=== PATIENT | male | born 1940 | race Caucasian/White ===

== ENCOUNTER 2018-06-07 13:35 | Inpatient (IN) ==
[2018-06-07] MEDS ORDERED: [UNRECOGNIZED DRUG - OTHER] TP PRN (17:15)
[2018-06-07] MEDS ORDERED: EARACHE DROPS OT PRN (17:15)
[2018-06-07] MEDS ORDERED: Nitroglycerin 0.4 MG TAB.SUBL SL PRN (17:15)
[2018-06-07] MEDS ORDERED: Mag Hydrox/Al Hydrox/Simeth 30 ML UDC PO PRN (17:22)
--- NOTE | 2018-06-07 17:22 | Internal Med History&Physical ---
Date of Encounter: 06/07/18 Time of Encounter: 17:19 Assessment and Plan (1) CAD (coronary artery disease) Current visit: No Status: Acute This is clinically stable. We will continue metoprolol prophylactically and watch his vital signs. When necessary nitroglycerin. Qualifiers: Coronary Disease-Associated Artery/Lesion type: [place] artery [place] vs. transplanted heart: [place] heart Associated angina: without angina Qualified Code(s): I25.10 - Atherosclerotic heart disease of [place] coronary artery without angina pectoris (2) Status post coronary artery bypass graft Current visit: Yes Status: Acute The patient is doing well, clinically. He has been instructed in use of incentive spirometer. He will be watched for fever, etc. (3) Weakness Current visit: Yes Status: Acute He has been debilitated after surgery and needs both physical therapy and occupational therapy to resume his usual activities. We will consult social service and recreational therapy for assessment, as well. (4) Benign prostatic hyperplasia Current visit: Yes Status: Acute This is apparently stable and patient has been urinating well, per history. We will continue him on his medications from home. Qualifiers: Lower urinary tract symptom presence: symptoms absent Qualified Code(s): N40.0 - Benign prostatic hyperplasia without lower urinary tract symptoms (5) Gastroesophageal reflux disease Current visit: Yes Status: Acute This is clinically stable and will continue acid suppression. Qualifiers: Esophagitis presence: without esophagitis Qualified Code(s): K21.9 - Gastro-esophageal reflux disease without esophagitis (6) Constipation by delayed colonic transit Current visit: Yes Status: Acute This is apparently related to inactivity and narcotics. He required an enema earlier today. I advised that he have a bowel movement at least every other day. If not, he should use MiraLAX. (7) Arrhythmia Current visit: Yes Status: Acute The etiology of this is not certain but he is on amiodarone. This will be co ntinued until cardiology instructs us, otherwise. Qualifiers: Arrhythmia type: unspecified cardiac arrhythmia Qualified Code(s): I49.9 - Cardiac arrhythmia, unspecified (8) Sinus symptom Current visit: Yes Status: Acute This is apparently chronic allergies and the patient takes fluticasone for same. Internal Medicine - H&P: HPI Chief complaint: Weakness Admitted From: Hospital to Hospital Transfer Plans for Post Hospital Care: Home History of present illness: Mr. Patterson is a 77 year old male status post CABG 5 on 05/31/[address] Ahuja. He is doing relatively well except for constipation, after surgery. He denies anginal type chest pain since the bypass and has been feeling generally well. He is careful to hold his bare while coughing. We discussed the incentive spirometer and he will use it more. Past medical history is significant for hyperlipidemia, coronary disease as noted with prior LA 3 and stent placement, remotely, allergies with chronic sinusitis, prostatism, GERD, and no diabetes or high blood pressure, etc. He is allergic to ciprofloxacin which causes hives and hydrocodone which causes an unknown reaction. Past surgical history is reviewed and includes cataracts, knee surgery, his CABG as expected. 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 He notes that Imdur gave him a headache and is pleased that he does not need that, postoperatively. Past Med Surg Social Fam HX - Past Medical History Medical history: coronary artery disease, GERD, hyperlipidemia, myocardial infarction, other Additional medical history: EXTERNAL DYSPNEA, [place] 2000, blood thinners, Psychiatric history: no psych history - Past Surgical History Surgical History: angioplasty/stent, appendectomy, cataract, herniorrhaphy, orthopedic, other, other Additional surgical history: egd,colonoscopy, RIGHT ANKLE FRACTURE, CATARACTS BILAT,SEPTOPLASTY AND SINUS SURGERY - Social History Smoking Status: Never smoker Smokeless Tobacco Status: No Alcohol use: rarely, occasionally Drug use: none - Family History Mother Living Status: Hx Family Cardiac Disorders: Yes Internal Medicine - H&P: Meds Atorvastatin [Lipitor] 40 mg PO QPM 06/05/15 [History] Cyanocobalamin (Vitamin B-12) [Vitamin B-12] 500 mcg SL QPM 06/05/15 [History] Folic Acid 0.4 mg PO QAM 06/05/15 [History] Pantoprazole Sodium [Protonix] 40 mg PO QAM 06/05/15 [History] Aspirin [Ecotrin] 325 mg PO 1200 05/28/18 [History] Cholecalciferol (Vitamin D3) [Vitamin D3] 1,000 unit PO QAM 05/28/18 [History] Doxazosin [Cardura] 2 mg PO HS 05/28/18 [History] Finasteride [Proscar] 5 mg PO DAILY 05/28/18 [History] Metoprolol Succinate [Toprol Xl] 25 mg PO HS 05/28/18 [History] Nitroglycerin [Nitrostat] 0.4 mg SL DAILY PRN 05/28/18 [History] raNITIdine HCl [Ranitidine HCl] 150 mg PO HS 05/28/18 [History] Azelaic Acid [Finacea] 1 appl TP BID 05/31/18 [History] Chlorhexidine Gluconate [Betasept] 1 appl TP DAILY PRN 05/31/18 [History] Ipratropium [place] 1 - 2 spr NS TID 05/31/18 [History] Selenium Sulfide [Tersi Foam] 1 appl TP BID 05/31/18 [History] Vitamin E 400 unit PO 1200 06/01/18 [History] Amiodarone [Cordarone] 200 mg PO DAILY 30 Days #30 tablet 06/07/18 [Rx] OxyCODONE/APAP 5/325 [Percocet 5/325 MG] 1 each PO Q4HR PRN 7 Days #20 tablet 06/07/18 [Rx] Patient Taking Own Medication 3 each OT TID PRN each 06/07/18 [Rx] Allergy/AdvReac Type Severity Reaction Status Date / Time ciprofloxacin AdvReac Hives Verified 05/31/18 12:39 hydrocodone AdvReac Itching Verified 05/31/18 07:37 All Systems PM: A 10-system review of systems was performed and is negative for pertinent findings except as documented above in the HPI. Review of systems: Patient has no complaint of chest discomfort, dyspnea, orthopnea, breathing problems, palpitations, nausea or vomiting, constipation or diarrhea, other tre nges in bowel habits, heartburn, difficulty with urination, kidney problems or kidney stones, fevers chills or sweats, rash or itching, seizures, headache or lightheadedness, heat or cold intolerance, blood problems or anemia, or other new complaints, except as mentioned above. Review of systems is otherwise negative. - Constitutional Vitals: Temp Pulse Resp BP Pulse Ox 98.4 F 82 16 129/81 96 06/07/18 16:23 06/07/18 16:23 06/07/18 16:23 06/07/18 16:23 06/07/18 16:23 Exam: Examination: (Except as mentioned above): General: In no apparent distress, alert and oriented 3. Head: Atraumatic and normocephalic. Eyes: Extraocular muscles are intact, pupils equal round and reactive to light and accommodation. Sclerae anicteric. Ears: External ears are normal to inspection and hearing is grossly normal. Nose: Patent without lesion noted. Mouth: No intraoral lesions seen. Dentition is unremarkable. Neck: Supple with trachea midline. There is no thyromegaly or adenopathy and carotids are 2+ without bruit heard. Respiratory: No use of accessory muscles. Lungs are clear throughout. Normal airflow. Cardiovascular: Regular rate and rhythm without murmur appreciated. Abdomen: Bowel sounds are normal. No hepatosplenomegaly masses or tenderness. Obese and therefore difficult to palpate deeply. Extremities: No cyanosis clubbing or edema. Neurological: A and O 3. Cranial nerves II through XII are intact. No focal deficits and no abnormal movements or postures. Skin: Warm and non-diaphoretic with no lesions noted. At his central line site he has a dressing as well as dressings where his low surgical drains, and at the lower aspect of his chest where. He has sternotomy scar looks well approximated and healing nicely. Breasts, pelvic and rectal: Not examined.
[2018-06-07] MEDS: Cyanocobalamin (B-12) 1,000 MCG TABLET PO SCH (18:44)
[2018-06-07] MEDS: (Ipratropium Bromide [Ipratropium Bromide] 1 SPR) NS SCH (20:33)
[2018-06-07] MEDS: AZELAIC ACID TP SCH (20:33)
[2018-06-07] MEDS: SELENIUM SULFIDE APPL TP SCH (20:33)
[2018-06-07] MEDS: Metoprolol XL (24 HR) Succ 25 MG TAB.ER.24H PO SCH (20:39)
[2018-06-07] MEDS: Famotidine 20 MG TABLET PO SCH (20:39)
[2018-06-07] MEDS: *HR* OxyCODONE/APAP 5/325 TABLET PO PRN (20:39)
[2018-06-08] MEDS: *HR* OxyCODONE/APAP 5/325 TABLET PO PRN ×3 (06:34→17:07)
[2018-06-08] MEDS: *HR* Enoxaparin 40 MG/0.4 ML SYRINGE SQ SCH (06:34)
[2018-06-08 07:13] LABS: Basophils % 0.3 %; Eosinophils # 0.5 K/mcL (0.0-0.6); Hematocrit 30.6 % (37.5-50.1); Hemoglobin 9.9 g/dL (12.9-16.9); Immature Granulocytes % 1.1 % (0-4); Lymphocytes # 0.8 K/mcL (0.6-4.6); Lymphocytes % 8.2 %; Mean Corpuscular HGB Conc 32.4 g/dL (31.6-35.5); Mean Corpuscular Volume 95.9 fL (83.0-100.0); Mean Platelet Volume 10.3 fL (9.4-12.4); Monocytes # 0.9 K/mcL (0.0-1.3); Monocytes % 9.1 %; Neutrophils # 7.2 K/mcL (1.6-8.9); Platelet Count 201 K/mcL (140-400); Red Blood Count 3.19 M/mcL (4.19-5.50); Red Cell Distribution Width 13.7 % (11.5-14.5); Segmented Neutrophils % 76.3 %
[2018-06-08 07:28] LABS: Alanine Aminotransferase 117 Units/L (7-52); Albumin 3.3 g/dL (3.5-5.7); Albumin/Globulin Ratio 1.6 (1.1-2.2); Alkaline Phosphatase 113 Units/L (34-104); Aspartate Amino Transferase 43 Units/L (13-39); BUN/Creatinine Ratio 16 (6-26); Bilirubin,Total 0.7 mg/dL (0.3-1.0); Blood Urea Nitrogen 16 mg/dL (8-23); Calcium 8.6 mg/dL (8.6-10.3); Carbon Dioxide 27 mEq/L (23-29); Chloride 105 mEq/L (98-107); Globulin 2.1 g/dL (2.4-3.5); Glucose 103 mg/dL (70-105); Magnesium 2.1 mg/dL (1.6-2.6); Osmolality,Calculated 287 (280-300); Potassium 4.4 mEq/L (3.5-5.1); Sodium 138 mEq/L (136-145); Total Protein 5.4 g/dL (6.4-8.9); eGFR For Non-African Americans > 60 (> 60)
[2018-06-08] MEDS: (Ipratropium Bromide [Ipratropium Bromide] 1 SPR) NS SCH ×3 (09:19→21:09)
[2018-06-08] MEDS: AZELAIC ACID TP SCH ×2 (09:19→21:09)
[2018-06-08] MEDS: SELENIUM SULFIDE APPL TP SCH ×2 (09:19→21:09)
[2018-06-08] MEDS: Finasteride 5 MG TABLET PO SCH (09:23)
[2018-06-08] MEDS: Folic Acid 1 MG TABLET PO SCH (09:24)
[2018-06-08] MEDS: *HR* Amiodarone 200 MG TABLET PO SCH (09:24)
[2018-06-08] MEDS: Cholecalciferol (D-3) 1,000 UNIT TABLET PO SCH (09:24)
--- NOTE | 2018-06-08 10:22 | Internal Med Progress Note ---
Date of Encounter: 06/08/18 Time of Encounter: 07:20 - Assessment and plan (1) CAD (coronary artery disease) Current Visit: No Status: Acute Assessment and plan: This is clinically stable without symptoms or signs. Qualifiers: Coronary Disease-Associated Artery/Lesion type: [place] artery [place] vs. transplanted heart: [place] heart Associated angina: without angina Qualified Code(s): I25.10 - Atherosclerotic heart disease of [place] coronary artery without angina pectoris (2) Status post coronary artery bypass graft Current Visit: Yes Status: Acute Assessment and plan: The patient is stable and returning to normal. We will continue to wean his oxygen. This will be followed. (3) Weakness Current Visit: Yes Status: Acute Assessment and plan: It seems like he should do well with therapy and this is to be assessed by therapists, today. (4) Benign prostatic hyperplasia Current Visit: Yes Status: Acute Assessment and plan: He is without current symptoms. Qualifiers: Lower urinary tract symptom presence: symptoms absent Qualified Code(s): N40.0 - Benign prostatic hyperplasia without lower urinary tract symptoms (5) Gastroesophageal reflux disease Current Visit: Yes Status: Acute Assessment and plan: No recent problems. Qualifiers: Esophagitis presence: without esophagitis Qualified Code(s): K21.9 - Gastro -esophageal reflux disease without esophagitis (6) Constipation by delayed colonic transit Current Visit: Yes Status: Acute Assessment and plan: As above, he has been instructed to use MiraLAX today. (7) Arrhythmia Current Visit: Yes Status: Acute Assessment and plan: Currently stable to exam and symptoms. Qualifiers: Arrhythmia type: unspecified cardiac arrhythmia Qualified Code(s): I49.9 - Cardiac arrhythmia, unspecified (8) Sinus symptom Current Visit: Yes Status: Acute Assessment and plan: This is stable. - Subjective Interval history: Patient is feeling generally well. He has no problems acutely. He still has some chest pain when he coughs. He is using his eva bear for this. He shows me his "black" area on his heel. This is actually ecchymotic and very mild, consistent with dependent blood collection. It is not fluctuant in the discoloration is about 2.5 cm in diameter at the posterior medial heel. He has still not moved his bowels and we talked about the use of a laxative. Patient has no complaint of chest discomfort, dyspnea, orthopnea, palpitations, nausea or vomiting, constipation or diarrhea, other changes in bowel habits, difficulty with urination, rash or itching, or other new complaints, except as mentioned above. Review of systems is otherwise negative. I discussed management of her care with nursing staff. - Constitutional Vitals: Temp Pulse Resp BP Pulse Ox 97.6 F 73 14 107/68 92 06/08/18 07:13 06/08/18 07:13 06/08/18 07:13 06/08/18 07:13 06/08/18 07:13 Exam: Examination: (Except as mentioned above): General: In no apparent distress. Alert and oriented 3. Nondiaphoretic. Head: Atraumatic and normocephalic. Respiratory: No use of accessory muscles. Lungs are clear throughout. Normal airflow. Cardiovascular: Regular rate and rhythm without murmur appreciated. Abdomen: Bowel sounds are normal. No hepatosplenomegaly mass or tenderness appreciated. Obese and therefore difficult to palpate deeply. Extremities: No cyanosis clubbing or edema. See comments in history of present illness regarding ecchymotic area on right heel. Skin: Warm and non-diaphoretic with no new lesions noted. Internal Medicine: Result - Labs CBC & Chem 7: 06/08/18 07:05 06/08/18 07:05 Labs: Short CBC 06/08/18 Range/Units 07:05 WBC 9.4 (4.3-11.1) K/mcL Hgb 9.9 L (12.9-16.9) g/dL Hct 30.6 L (37.5-50.1) % Plt Count 201 (140-400) K/mcL Neutrophils # 7.2 (1.6-8.9) K/mcL BMP 06/08/18 07:05 Sodium 138 Potassium 4.4 Chloride 105 Carbon Dioxide 27 BUN 16 Creatinine 1.01 Glucose 103 Calcium 8.6 Liver Function 06/08/18 Range/Units 07:05 Total Bilirubin 0.7 (0.3-1.0) mg/dL AST 43 H (13-39) Units/L ALT 117 H (7-52) Units/L Alkaline Phosphatase 113 H (34-104) Units/L Albumin 3.3 L (3.5-5.7) g/dL Consult Discharge Plan - Plan Referrals: Adair Ahuja MD [Primary Care Provider] -
[2018-06-08] MEDS: Aspirin Enteric Coated 325 MG Tablet PO SCH (13:27)
[2018-06-08] MEDS: Cyanocobalamin (B-12) 1,000 MCG TABLET PO SCH (17:07)
[2018-06-08] MEDS: Famotidine 20 MG TABLET PO SCH (21:08)
[2018-06-08] MEDS: Metoprolol XL (24 HR) Succ 25 MG TAB.ER.24H PO SCH (21:09)
[2018-06-09] MEDS: *HR* Enoxaparin 40 MG/0.4 ML SYRINGE SQ SCH (06:19)
[2018-06-09] MEDS: *HR* Amiodarone 200 MG TABLET PO SCH (09:26)
[2018-06-09] MEDS: *HR* OxyCODONE/APAP 5/325 TABLET PO PRN ×2 (09:27→20:14)
[2018-06-09] MEDS: Folic Acid 1 MG TABLET PO SCH (09:27)
[2018-06-09] MEDS: Cholecalciferol (D-3) 1,000 UNIT TABLET PO SCH (09:27)
[2018-06-09] MEDS: Finasteride 5 MG TABLET PO SCH (09:27)
[2018-06-09] MEDS: AZELAIC ACID TP SCH ×2 (09:28→20:11)
[2018-06-09] MEDS: SELENIUM SULFIDE APPL TP SCH ×2 (09:28→20:12)
[2018-06-09] MEDS: (Ipratropium Bromide [Ipratropium Bromide] 1 SPR) NS SCH ×3 (09:28→20:13)
[2018-06-09] MEDS: Aspirin Enteric Coated 325 MG Tablet PO SCH (12:15)
--- NOTE | 2018-06-09 14:28 | Internal Med Progress Note ---
Addendum entered and electronically signed by Yulisa Hernandez 06/10/18 14:48: I have personally performed a face to face evaluation on this patient. I have reviewed and agree with the care plan. Original Note: Date of Encounter: 06/09/18 Time of Encounter: 14:26 - Assessment and plan (1) Status post coronary artery bypass graft Current Visit: Yes Status: Acute Assessment and plan: Continue PT and OT for weakness. Will follow progress. Continue precautions. Follow up with cardiology as scheduled. Starting to wean off oxygen. Maintaining O2 sats with exertion on room air at 93%. (2) CAD (coronary artery disease) Current Visit: Yes Status: Acute Assessment and plan: Denies chest pain. Stable. Continue current medication. Qualifiers: Coronary Disease-Associated Artery/Lesion type: [place] artery [place] vs. tr ansplanted heart: [place] heart Associated angina: without angina Qualified Code(s): I25.10 - Atherosclerotic heart disease of [place] coronary artery without angina pectoris - Subjective Interval history: Patient is participating well with therapy. Ambulating with therapy hundred feet with contact guard assist. Denies chest pain, fever, chills, nausea vomiting or diarrhea. States bowels move this morning. Maintaining appetite and hydration. at bedside during exam. - Constitutional Vitals: Temp Pulse Resp BP Pulse Ox 98.2 F 99 18 112/69 91 06/09/18 07:21 06/09/18 07:21 06/09/18 07:21 06/09/18 07:21 06/09/18 07:21 General appearance: Present: cooperative, A&O X 3, pleasant, no acute distress, answers questions appropriately - Head Head exam: Present: atraumatic, normocephalic - Eye Eye exam: Present: PERRL, conjuntiva pink, sclera anicteric Pupils: Present: PERRL - Neck Neck exam general surgery: Present: supple, trachea midline. Absent: lymphadenopathy - Respiratory Respiratory exam: Present: CTAB. Absent: accessory muscle use, rales, rhonchi, wheezes - Cardiovascular Cardiovascular exam: Present: RRR, +S1, +S2. Absent: diastolic murmur, gallop, rubs, systolic murmur - GI/Abdominal GI/Abdominal exam: Present: normal bowel sounds, soft, no peritoneal signs. Absent: distended, tenderness - Extremities Exam Extremities exam: Present: warm, radial pulses palpable and symmetrical. Absent: calf tenderness, cyanotic, pedal edema Additional comments: Miguel hose on bilateral lower extremities. Right ankle slightly swollen. - [place] Comments: Sternal incision dry and intact. No drainage. - Neurological Exam Neurological exam: Present: CN II-XII intact, oriented X3, no focal deficits. Absent: pronater drift, facial droop, speech deficit - Skin Skin exam: Present: dry, intact Internal Medicine: Result - Labs CBC & Chem 7: 06/08/18 07:05 06/08/18 07:05 Consult Discharge Plan - Plan Referrals: Adair Ahuja MD [Primary Care Provider] -
[2018-06-09] MEDS: Cyanocobalamin (B-12) 1,000 MCG TABLET PO SCH (17:22)
[2018-06-09] MEDS: Famotidine 20 MG TABLET PO SCH (20:13)
[2018-06-09] MEDS: Metoprolol XL (24 HR) Succ 25 MG TAB.ER.24H PO SCH (20:13)
[2018-06-10] MEDS: *HR* OxyCODONE/APAP 5/325 TABLET PO PRN ×3 (05:08→19:55)
[2018-06-10] MEDS: *HR* Enoxaparin 40 MG/0.4 ML SYRINGE SQ SCH (05:08)
[2018-06-10] MEDS: Folic Acid 1 MG TABLET PO SCH (07:56)
[2018-06-10] MEDS: Finasteride 5 MG TABLET PO SCH (07:56)
[2018-06-10] MEDS: Cholecalciferol (D-3) 1,000 UNIT TABLET PO SCH (07:57)
[2018-06-10] MEDS: *HR* Amiodarone 200 MG TABLET PO SCH (07:57)
[2018-06-10] MEDS: (Ipratropium Bromide [Ipratropium Bromide] 1 SPR) NS SCH ×3 (07:58→19:51)
[2018-06-10] MEDS: AZELAIC ACID TP SCH ×2 (07:58→19:51)
[2018-06-10] MEDS: SELENIUM SULFIDE APPL TP SCH ×2 (07:58→19:51)
[2018-06-10] MEDS: Acetaminophen 325 MG TABLET PO PRN (08:20)
[2018-06-10] MEDS: Aspirin Enteric Coated 325 MG Tablet PO SCH (11:33)
--- NOTE | 2018-06-10 11:57 | Internal Med Progress Note ---
Addendum entered and electronically signed by Yulisa Hernandez 06/10/18 14:48: I have personally performed a face to face evaluation on this patient. I have reviewed and agree with the care plan. His mood is good. Original Note: Date of Encounter: 06/10/18 Time of Encounter: 11:55 - Assessment and plan (1) Status post coronary artery bypass graft Current Visit: Yes Status: Acute Assessment and plan: No acute issues. Progressing well with PT/OT. Surgical incision appears healthy. Afebrile. Continue on current plan of care. (2) Benign prostatic hyperplasia Current Visit: Yes Status: Acute Assessment and plan: No acute issues. Voiding well. Continue on current meds. Qualifiers: Lower urinary tract symptom presence: symptoms absent Qualified Code(s): N40.0 - Benign prostatic hyperplasia without lower urinary tract symptoms (3) Gastroesophageal reflux disease Current Visit: Yes Status: Acute Assessment and plan: No reported refux. Continue on current meds. Qualifiers: Esophagitis presence: without esophagitis Qualified Code(s): K21.9 - Gastro-esophageal reflux disease without esophagitis - Time Spent With Patient less than 15 minutes - Subjective Interval history: Patient appears relaxed and currently denies any dyspnea or discomforts. Stats that his pain has been well controlled. States that his therapy has been going well. - Constitutional Vitals: Temp Pulse Resp BP Pulse Ox 97.6 F 74 20 106/62 93 06/10/18 07:23 06/10/18 07:23 06/10/18 07:23 06/10/18 07:23 06/10/18 08:01 General appearance: Present: cooperative, A&O X 3, pleasant, no acute distress, answers questions appropriately - Head Head exam: Present: atraumatic, normocephalic - Eye Eye exam: Present: PERRL, conjuntiva pink, sclera anicteric Pupils: Present: PERRL - Neck Neck exam general surgery: Present: supple, trachea midline. Absent: lymphadenopathy - Respiratory Respiratory exam: Present: CTAB. Absent: accessory muscle use, rales, rhonchi, wheezes - Cardiovascular Cardiovascular exam: Present: RRR, +S1, +S2. Absent: diastolic murmur, gallop, rubs, systolic murmur - GI/Abdominal GI/Abdominal exam: Present: normal bowel sounds, soft, no peritoneal signs. Absent: distended, tenderness - Extremities Exam Extremities exam: Present: warm, radial pulses palpable and symmetrical. Absent: calf tenderness, cyanotic, pedal edema - Neurological Exam Neurological exam: Present: CN II-XII intact, oriented X3, no focal deficits. Absent: pronater drift, facial droop, speech deficit - Skin Skin exam: Present: dry, intact Additional comments: midline chest incision remains dry and intact. Internal Medicine: Result - Labs CBC & Chem 7: 06/08/18 07:05 06/08/18 07:05 Consult Discharge Plan - Plan Referrals: Adair Ahuja MD [Primary Care Provider] -
[2018-06-10] MEDS: Cyanocobalamin (B-12) 1,000 MCG TABLET PO SCH (17:01)
[2018-06-10] MEDS ORDERED: Lacri-Lube 3.5 GM TUBE BOTH EYES PRN (18:49)
[2018-06-10] MEDS: Famotidine 20 MG TABLET PO SCH (19:54)
[2018-06-10] MEDS: Metoprolol XL (24 HR) Succ 25 MG TAB.ER.24H PO SCH (19:55)
[2018-06-11] MEDS: *HR* OxyCODONE/APAP 5/325 TABLET PO PRN ×3 (04:11→16:29)
[2018-06-11] MEDS: *HR* Enoxaparin 40 MG/0.4 ML SYRINGE SQ SCH (04:11)
[2018-06-11] MEDS: Folic Acid 1 MG TABLET PO SCH (09:19)
[2018-06-11] MEDS: Finasteride 5 MG TABLET PO SCH (09:20)
[2018-06-11] MEDS: *HR* Amiodarone 200 MG TABLET PO SCH (09:20)
[2018-06-11] MEDS: Cholecalciferol (D-3) 1,000 UNIT TABLET PO SCH (09:20)
[2018-06-11] MEDS: (Ipratropium Bromide [Ipratropium Bromide] 1 SPR) NS SCH ×3 (09:21→19:57)
[2018-06-11] MEDS: AZELAIC ACID TP SCH ×2 (09:21→19:56)
[2018-06-11] MEDS: SELENIUM SULFIDE APPL TP SCH ×2 (09:21→19:57)
--- NOTE | 2018-06-11 11:55 | Internal Med Progress Note ---
<Dameon Paredes - Last Filed: 06/11/18 11:50> Date of Encounter: 06/11/18 Time of Encounter: 11:50 - Assessment and plan (1) Status post coronary artery bypass graft Current Visit: Yes Status: Acute Assessment and plan: No acute issues. Progressing well with PT/OT. Surgical incision appears healthy. Afebrile. Continue on current plan of care. (2) Benign prostatic hyperplasia Current Visit: Yes Status: Acute Assessment and plan: No acute issues. Voiding well. Continue on current meds. Qualifiers: Lower urinary tract symptom presence: symptoms absent Qualified Code(s): N40.0 - Benign prostatic hyperplasia without lower urinary tract symptoms (3) Gastroesophageal reflux disease Current Visit: Yes Status: Acute Assessment and plan: No reported refux. Continue on current meds. Qualifiers: Esophagitis presence: without esophagitis Qualified Code(s): K21.9 - Gastro-esophageal reflux disease without esophagitis - Time Spent With Patient less than 15 minutes - Subjective Interval history: Patient appears relaxed and currently denies any dyspnea or discomforts. Stats that his pain has been well controlled. States that his therapy has been going well. Patient has c/o of constipation - Constitutional Vitals: Temp Pulse Resp BP Pulse Ox 97.3 F L 80 16 126/78 92 06/11/18 07:26 06/11/18 07:26 06/11/18 07:26 06/11/18 07:26 06/11/18 07:26 General appearance: Present: cooperative, A&O X 3, pleasant, no acute distress, answers questions appropriately - Head Head exam: Present: atraumatic, normocephalic - Eye Eye exam: Present: PERRL, conjuntiva pink, sclera anicteric Pupils: Present: PERRL - Neck Neck exam general surgery: Present: supple, trachea midline. Absent: lymphadenopathy - Respiratory Respiratory exam: Present: CTAB. Absent: accessory muscle use, rales, rhonchi, wheezes - Cardiovascular Cardiovascular exam: Present: RRR, +S1, +S2. Absent: diastolic murmur, gallop, rubs, systolic murmur - GI/Abdominal GI/Abdominal exam: Present: normal bowel sounds, soft, no peritoneal signs. Absent: distended, tenderness - Extremities Exam Extremities exam: Present: warm, radial pulses palpable and symmetrical. Absent: calf tenderness, cyanotic, pedal edema - Neurological Exam Neurological exam: Present: CN II-XII intact, oriented X3, no focal deficits. Absent: pronater drift, facial droop, speech deficit - Skin Skin exam: Present: dry, intact Additional comments: Midline chest surgical incision appears healthy and intact. Patient continues to have dsg to sternal chest tube site Internal Medicine: Result - Labs CBC & Chem 7: 06/08/18 07:05 06/08/18 07:05 Consult Discharge Plan - Plan Referrals: Adair Ahuja MD [Primary Care Provider] - <Yulisa Hernandez - Last Filed: 06/13/18 11:54> Date of Encounter: 06/11/18 - Constitutional Vitals: Temp Pulse Resp BP Pulse Ox 98.1 F 78 16 112/72 92 06/13/18 07:51 06/13/18 07:51 06/13/18 07:51 06/13/18 07:51 06/13/18 07:51 Internal Medicine: Result - Labs CBC & Chem 7: 06/08/18 07:05 06/08/18 07:05
[2018-06-11] MEDS: Aspirin Enteric Coated 325 MG Tablet PO SCH (12:12)
[2018-06-11] MEDS: Cyanocobalamin (B-12) 1,000 MCG TABLET PO SCH (18:11)
[2018-06-11] MEDS: Acetaminophen 325 MG TABLET PO PRN (19:52)
[2018-06-11] MEDS: Sennosides 8.6 MG TABLET PO SCH (19:52)
[2018-06-11] MEDS: Famotidine 20 MG TABLET PO SCH (19:53)
[2018-06-11] MEDS: Metoprolol XL (24 HR) Succ 25 MG TAB.ER.24H PO SCH (19:53)
[2018-06-12] MEDS: *HR* Enoxaparin 40 MG/0.4 ML SYRINGE SQ SCH (04:47)
[2018-06-12] MEDS: Sennosides 8.6 MG TABLET PO SCH ×2 (04:47→20:35)
[2018-06-12] MEDS: *HR* OxyCODONE/APAP 5/325 TABLET PO PRN ×4 (04:48→20:34)
[2018-06-12] MEDS: Folic Acid 1 MG TABLET PO SCH (08:41)
[2018-06-12] MEDS: Finasteride 5 MG TABLET PO SCH (08:42)
[2018-06-12] MEDS: *HR* Amiodarone 200 MG TABLET PO SCH (08:42)
[2018-06-12] MEDS: SELENIUM SULFIDE APPL TP SCH ×2 (08:42→20:36)
[2018-06-12] MEDS: AZELAIC ACID TP SCH ×2 (08:42→20:36)
[2018-06-12] MEDS: (Ipratropium Bromide [Ipratropium Bromide] 1 SPR) NS SCH ×3 (08:42→20:36)
[2018-06-12] MEDS: Cholecalciferol (D-3) 1,000 UNIT TABLET PO SCH (08:42)
--- NOTE | 2018-06-12 11:12 | Internal Med Progress Note ---
Date of Encounter: 06/13/18 Time of Encounter: 11:10 - Subjective Interval history: - Assessment and plan (1) Status post coronary artery bypass graft Current Visit: Yes Status: Acute Assessment and plan: No chest pain no palptiation No acute issues. Progressing well with PT/OT. Surgical incision appears healthy and no changes . Afebrile. Continue on current plan of care. (2) Benign prostatic hyperplasia Current Visit: Yes Status: Acute Assessment and plan: No acute issues. Voiding well. Continue on current meds. Qualifiers: Lower urinary tract symptom presence: symptoms absent Qualified Code(s): N40.0 - Benign prostatic hyperplasia without lower urinary tract symptoms (3) Gastroesophageal reflux disease Current Visit: Yes Status: Acute Assessment and plan: No reported refux. Continue on current meds. Qualifiers: Esophagitis presence: without esophagitis Qualified Code(s): K21.9 - Gastro-esophageal reflux disease without esophagitis - Time Spent With Patient less than 15 minutes - Subjective Interval history: PT doing well in therapy Stats that his pain has been well controlled. Started on bowl care regimen. Patient has c/o of constipation No chest pain no change in sob -EXAM Vitals: General appearance: Present: cooperative, A&O X 3, pleasant, no acute distress, answers questions appropriately - Head Head exam: Present: atraumatic, normocephalic - Eye Eye exam: Present: PERRL, conjuntiva pink, sclera anicteric Pupils: Present: PERRL - Neck Neck exam general surgery: Present: supple, trachea midline. Absent: lymphadenopathy - Respiratory Respiratory exam: Present: CTAB. Absent: accessory muscle use, rales, rhonchi, wheezes - Cardiovascular Cardiovascular exam: Present: RRR, +S1, +S2. Absent: diastolic murmur, gallop, rubs, systolic murmur - GI/Abdominal GI/Abdominal exam: Present: normal bowel sounds, soft, no peritoneal signs. Absent: distended, tenderness - Extremities Exam Extremities exam: Present: warm, radial pulses palpable and symmetrical. Absent: calf tenderness, cyanotic, pedal edema - Neurological Exam Neurological exam: Present: CN II-XII intact, oriented X3, no focal deficits. Absent: pronater drift, facial droop, speech deficit - Skin Skin exam: Present: dry, intact Additional comments: Midline chest surgical incision appears healthy and intact. - Constitutional Vitals: Temp Pulse Resp BP Pulse Ox 98.6 F 64 16 100/64 91 06/12/18 06:48 06/12/18 06:48 06/11/18 18:53 06/12/18 06:48 06/12/18 06:48 Internal Medicine: Result - Labs CBC & Chem 7: 06/08/18 07:05 06/08/18 07:05 Consult Discharge Plan - Plan Referrals: Adair Ahuja MD [Primary Care Provider] -
[2018-06-12] MEDS: Aspirin Enteric Coated 325 MG Tablet PO SCH (12:14)
[2018-06-12] MEDS: Cyanocobalamin (B-12) 1,000 MCG TABLET PO SCH (17:17)
[2018-06-12] MEDS: Metoprolol XL (24 HR) Succ 25 MG TAB.ER.24H PO SCH (20:35)
[2018-06-12] MEDS: Famotidine 20 MG TABLET PO SCH (20:35)
[2018-06-13] MEDS: *HR* Enoxaparin 40 MG/0.4 ML SYRINGE SQ SCH (05:57)
[2018-06-13] MEDS: Folic Acid 1 MG TABLET PO SCH (07:42)
[2018-06-13] MEDS: Sennosides 8.6 MG TABLET PO SCH ×2 (07:42→20:33)
[2018-06-13] MEDS: Finasteride 5 MG TABLET PO SCH (07:43)
[2018-06-13] MEDS: SELENIUM SULFIDE APPL TP SCH ×2 (07:43→20:35)
[2018-06-13] MEDS: Cholecalciferol (D-3) 1,000 UNIT TABLET PO SCH (07:43)
[2018-06-13] MEDS: (Ipratropium Bromide [Ipratropium Bromide] 1 SPR) NS SCH ×3 (07:43→20:35)
[2018-06-13] MEDS: AZELAIC ACID TP SCH ×2 (07:43→20:36)
[2018-06-13] MEDS: *HR* Amiodarone 200 MG TABLET PO SCH (07:44)
[2018-06-13] MEDS: *HR* OxyCODONE/APAP 5/325 TABLET PO PRN ×4 (07:48→21:04)
--- NOTE | 2018-06-13 11:56 | Internal Med Progress Note ---
Date of Encounter: 06/13/18 Time of Encounter: 11:30 - Subjective Interval history: - Assessment and plan (1) Status post coronary artery bypass graft Current Visit: Yes Status: Acute Assessment and plan: No chest pain no palptiation No acute issues. Progressing well with PT/OT. Surgical incision appears healthy and no changes . Afebrile. Continue on current plan of care. (2) Benign prostatic hyperplasia Current Visit: Yes Status: Acute Assessment and plan: No acute issues. Voiding well. Continue on current meds. Qualifiers: Lower urinary tract symptom presence: symptoms absent Qualified Code(s): N40.0 - Benign prostatic hyperplasia without lower urinary tract symptoms (3) Gastroesophageal reflux disease Current Visit: Yes Status: Acute Assessment and plan: No reported refux. Continue on current meds. Qualifiers: Esophagitis presence: without esophagitis Qualified Code(s): K21.9 - Gastro-esophageal reflux disease without esophagitis - Time Spent With Patient less than 15 minutes - Subjective Interval history: PT doing well in therapy Stats that his pain has been well controlled. Started on bowl care regimen. Patient has c/o of constipation No chest pain no change in sob -EXAM Vitals: General appearance: Present: cooperative, A&O X 3, pleasant, no acute distress, answers questions appropriately - Head Head exam: Present: atraumatic, normocephalic - Eye Eye exam: Present: PERRL, conjuntiva pink, sclera anicteric Pupils: Present: PERRL - Neck Neck exam general surgery: Present: supple, trachea midline. Absent: lymphadenopathy - Respiratory Respiratory exam: Present: CTAB. Absent: accessory muscle use, rales, rhonchi, wheezes - Cardiovascular Cardiovascular exam: Present: RRR, +S1, +S2. Absent: diastolic murmur, gallop, rubs, systolic murmur - GI/Abdominal GI/Abdominal exam: Present: normal bowel sounds, soft, no peritoneal signs. Absent: distended, tenderness - Extremities Exam Extremities exam: Present: warm, radial pulses palpable and symmetrical. Absent: calf tenderness, cyanotic, pedal edema - Neurological Exam Neurological exam: Present: CN II-XII intact, oriented X3, no focal deficits. Absent: pronater drift, facial droop, speech deficit - Skin Skin exam: Present: dry, intact Additional comments: Midline chest surgical incision appears healthy and intact. - Constitutional Vitals: Temp Pulse Resp BP Pulse Ox 98.1 F 78 16 112/72 92 06/13/18 07:51 06/13/18 07:51 06/13/18 07:51 06/13/18 07:51 06/13/18 07:51 Internal Medicine: Result - Labs CBC & Chem 7: 06/08/18 07:05 06/08/18 07:05 Consult Discharge Plan - Plan Referrals: Adair Ahuja MD [Primary Care Provider] -
[2018-06-13] MEDS: Aspirin Enteric Coated 325 MG Tablet PO SCH (12:47)
[2018-06-13] MEDS: Cyanocobalamin (B-12) 1,000 MCG TABLET PO SCH (17:01)
[2018-06-13] MEDS: Metoprolol XL (24 HR) Succ 25 MG TAB.ER.24H PO SCH (20:33)
[2018-06-13] MEDS: Famotidine 20 MG TABLET PO SCH (20:33)
[2018-06-14] MEDS: *HR* Enoxaparin 40 MG/0.4 ML SYRINGE SQ SCH (04:47)
[2018-06-14 05:15] LABS: Basophils # 0.1 K/mcL (0.0-0.2); Basophils % 0.9 %; Eosinophils # 0.3 K/mcL (0.0-0.6); Eosinophils % 5.3 %; Hematocrit 33.7 % (37.5-50.1); Hemoglobin 10.8 g/dL (12.9-16.9); Immature Granulocytes % 0.7 % (0-4); Lymphocytes # 0.9 K/mcL (0.6-4.6); Lymphocytes % 16.4 %; Mean Corpuscular Hemoglobin 31.6 pg (28.0-33.3); Mean Corpuscular Volume 98.5 fL (83.0-100.0); Mean Platelet Volume 10.1 fL (9.4-12.4); Monocytes # 0.7 K/mcL (0.0-1.3); Monocytes % 12.2 %; Neutrophils # 3.7 K/mcL (1.6-8.9); Platelet Count 337 K/mcL (140-400); Red Blood Count 3.42 M/mcL (4.19-5.50); Red Cell Distribution Width 14.5 % (11.5-14.5); Segmented Neutrophils % 64.5 %
[2018-06-14 05:28] LABS: BUN/Creatinine Ratio 14 (6-26); Blood Urea Nitrogen 16 mg/dL (8-23); Calcium 8.9 mg/dL (8.6-10.3); Carbon Dioxide 26 mEq/L (23-29); Chloride 105 mEq/L (98-107); Glucose 101 mg/dL (70-105); Osmolality,Calculated 285 (280-300); Potassium 4.4 mEq/L (3.5-5.1); Sodium 137 mEq/L (136-145); eGFR For Non-African Americans > 60 (> 60)
[2018-06-14] MEDS: Cholecalciferol (D-3) 1,000 UNIT TABLET PO SCH (07:27)
[2018-06-14] MEDS: *HR* OxyCODONE/APAP 5/325 TABLET PO PRN ×3 (07:27→18:10)
[2018-06-14] MEDS: Sennosides 8.6 MG TABLET PO SCH ×2 (07:27→20:47)
[2018-06-14] MEDS: *HR* Amiodarone 200 MG TABLET PO SCH (07:27)
[2018-06-14] MEDS: Finasteride 5 MG TABLET PO SCH (07:27)
[2018-06-14] MEDS: Folic Acid 1 MG TABLET PO SCH (07:27)
[2018-06-14] MEDS: AZELAIC ACID TP SCH ×2 (07:28→20:50)
[2018-06-14] MEDS: SELENIUM SULFIDE APPL TP SCH ×2 (07:28→20:50)
[2018-06-14] MEDS: (Ipratropium Bromide [Ipratropium Bromide] 1 SPR) NS SCH ×3 (07:28→20:50)
--- NOTE | 2018-06-14 09:49 | Internal Med Progress Note ---
Addendum entered and electronically signed by Yulisa Hernandez 06/15/18 14:30: I have personally performed a face to face evaluation on this patient. I have reviewed and agree with the care plan. Original Note: Date of Encounter: 06/14/18 Time of Encounter: 09:48 - Assessment and plan (1) Status post coronary artery bypass graft Current Visit: Yes Status: Acute Assessment and plan: No acute issues. Progressing well with PT/OT. Patient observed ambulating with out assistance and hallway. Surgical incision appears healthy. Afebrile. Continue on current plan of care. (2) Benign prostatic hyperplasia Current Visit: Yes Status: Acute Assessment and plan: No acute issues. Voiding well. Continue on current meds. Qualifiers: Lower urinary tract symptom presence: symptoms absent Qualified Code(s): N40.0 - Benign prostatic hyperplasia without lower urinary tract symptoms (3) Gastroesophageal reflux disease Current Visit: Yes Status: Acute Assessment and plan: No reported refux. Continue on current meds. Qualifiers: Esophagitis presence: without esophagitis Qualified Code(s): K21.9 - Gastro-esophageal reflux disease without esophagitis - Time Spent With Patient less than 15 minutes - Subjective Interval history: Patient appears relaxed and currently denies any dyspnea or discomforts. Stats that his pain has been well controlled. States that his therapy has been going well. - Constitutional Vitals: Temp Pulse Resp BP Pulse Ox 98.2 F 70 16 109/68 96 06/14/18 06:48 06/14/18 06:48 06/14/18 06:48 06/14/18 06:48 06/14/18 06:48 General appearance: Present: cooperative, A&O X 3, pleasant, no acute distress, answers questions appropriately - Head Head exam: Present: atraumatic, normocephalic - Eye Eye exam: Present: PERRL, conjuntiva pink, sclera anicteric Pupils: Present: PERRL - Neck Neck exam general surgery: Present: supple, trachea midline. Absent: lymphadenopathy - Respiratory Respiratory exam: Present: CTAB. Absent: accessory muscle use, rales, rhonchi, wheezes - Cardiovascular Cardiovascular exam: Present: RRR, +S1, +S2. Absent: diastolic murmur, gallop, rubs, systolic murmur - GI/Abdominal GI/Abdominal exam: Present: normal bowel sounds, soft, no peritoneal signs. Absent: distended, tenderness - Extremities Exam Extremities exam: Present: warm, radial pulses palpable and symmetrical. Absent: calf tenderness, cyanotic, pedal edema - Incison Incision: Present: clean and dry, intact Comments: Midline chest incision appears dry and intact. Patient continues to have dressing to sternal chest tube sites, which also is dry and intact - Neurological Exam Neurological exam: Present: CN II-XII intact, oriented X3, no focal deficits. Absent: pronater drift, facial droop, speech deficit - Skin Skin exam: Present: dry, intact Internal Medicine: Result - Labs CBC & Chem 7: 06/14/18 05:05 06/14/18 05:05 Labs: Short CBC 06/14/18 Range/Units 05:05 WBC 5.7 (4.3-11.1) K/mcL Hgb 10.8 L (12.9-16.9) g/dL Hct 33.7 L (37.5-50.1) % Plt Count 337 D (140-400) K/mcL Neutrophils # 3.7 (1.6-8.9) K/mcL BMP 06/14/18 05:05 Sodium 137 Potassium 4.4 Chloride 105 Carbon Dioxide 26 BUN 16 Creatinine 1.11 Glucose 101 Calcium 8.9 Consult Discharge Plan - Plan Referrals: Adair Ahuja MD [Primary Care Provider] -
[2018-06-14] MEDS: Aspirin Enteric Coated 325 MG Tablet PO SCH (11:50)
[2018-06-14] MEDS: Cyanocobalamin (B-12) 1,000 MCG TABLET PO SCH (18:11)
[2018-06-14] MEDS: Metoprolol XL (24 HR) Succ 25 MG TAB.ER.24H PO SCH (20:47)
[2018-06-14] MEDS: Famotidine 20 MG TABLET PO SCH (20:47)
[2018-06-15] MEDS: *HR* Enoxaparin 40 MG/0.4 ML SYRINGE SQ SCH (05:31)
[2018-06-15] MEDS: *HR* OxyCODONE/APAP 5/325 TABLET PO PRN ×2 (05:35→11:15)
[2018-06-15 07:10] VITALS: BP 103/65
[2018-06-15] MEDS: Sennosides 8.6 MG TABLET PO SCH (08:09)
[2018-06-15] MEDS: Finasteride 5 MG TABLET PO SCH (08:10)
[2018-06-15] MEDS: (Ipratropium Bromide [Ipratropium Bromide] 1 SPR) NS SCH (08:10)
[2018-06-15] MEDS: Folic Acid 1 MG TABLET PO SCH (08:10)
[2018-06-15] MEDS: AZELAIC ACID TP SCH (08:10)
[2018-06-15] MEDS: *HR* Amiodarone 200 MG TABLET PO SCH (08:10)
[2018-06-15] MEDS: Cholecalciferol (D-3) 1,000 UNIT TABLET PO SCH (08:10)
[2018-06-15] MEDS: SELENIUM SULFIDE APPL TP SCH (08:11)
[2018-06-15] MEDS: Aspirin Enteric Coated 325 MG Tablet PO SCH (11:15)
--- NOTE | 2018-06-15 14:02 | Discharge Summary ---
Addendum entered and electronically signed by Yulisa Hernandez 06/15/18 14:28: I have personally performed a face to face evaluation on this patient. I have reviewed and agree with the care plan. PT has done well, improved in strength. No chest pain no palpitation. Tolerating 200 mg amiodarone and other medication without problem. Will keep follow up with PMD and Cardiology. Original Note: Date of Encounter: 06/15/18 Time of Encounter: 13:45 - Discharge Diagnosis (1) Status post coronary artery bypass graft Priority: Primary Status: Acute Comments: Sternal incision healing. Follow up with padding gluer as scheduled. (2) CAD (coronary artery disease) Priority: Secondary Status: Acute Comments: Denies chest pain. Continue current medication. Qualifiers: Coronary Disease-Associated Artery/Lesion type: [place] artery [place] vs. transplanted heart: [place] heart Associated angina: without angina Qualified Code(s): I25.10 - Atherosclerotic heart disease of [place] coronary artery without angina pectoris Hospital course: Mr. Patterson is a 77 year old male discharging to home with after being admitted to rehab for deconditioning s/p CABG. denies SOB, fever, chills, NVD or chest pain. Discharge discussed with: patient, family, nurse, social work - Time Spent with Patient Total time spent providing and/or coordinating discharge services: Less than 30 minutes - Discharge Medications Prescriptions: No Action Cyanocobalamin (Vitamin B-12) [Vitamin B-12] 500 mcg SL QPM Folic Acid 0.4 mg PO QAM Atorvastatin [Lipitor] 40 mg PO QPM Pantoprazole Sodium [Protonix] 40 mg PO QAM Nitroglycerin [Nitrostat] 0.4 mg SL DAILY PRN PRN Reason: Chest Pain Metoprolol Succinate [Toprol Xl] 25 mg PO HS raNITIdine HCl [Ranitidine HCl] 150 mg PO HS Finasteride [Proscar] 5 mg PO DAILY Aspirin [Ecotrin] 325 mg PO 1200 Doxazosin [Cardura] 2 mg PO HS Cholecalciferol (Vitamin D3) [Vitamin D3] 1,000 unit PO QAM Chlorhexidine Gluconate [Betasept] 1 appl TP DAILY PRN PRN Reason: SCALP CLEANSER Ipratropium [place] 1 - 2 spr NS TID Selenium Sulfide [Tersi Foam] 1 appl TP BID Azelaic Acid [Finacea] 1 appl TP BID Vitamin E 400 unit PO 1200 Amiodarone [Cordarone] 200 mg PO DAILY 30 Days #30 tablet Patient Taking Own Medication 3 each OT TID PRN each PRN Reason: Ear Pain Home Medications: Atorvastatin [Lipitor] 40 mg PO QPM 06/05/15 [History] Cyanocobalamin (Vitamin B-12) [Vitamin B-12] 500 mcg SL QPM 06/05/15 [History] Folic Acid 0.4 mg PO QAM 06/05/15 [History] Pantoprazole Sodium [Protonix] 40 mg PO QAM 06/05/15 [History] Aspirin [Ecotrin] 325 mg PO 1200 05/28/18 [History] Cholecalciferol (Vitamin D3) [Vitamin D3] 1,000 unit PO QAM 05/28/18 [History] Doxazosin [Cardura] 2 mg PO HS 05/28/18 [History] Finasteride [Proscar] 5 mg PO DAILY 05/28/18 [History] Metoprolol Succinate [Toprol Xl] 25 mg PO HS 05/28/18 [History] Nitroglycerin [Nitrostat] 0.4 mg SL DAILY PRN 05/28/18 [History] raNITIdine HCl [Ranitidine HCl] 150 mg PO HS 05/28/18 [History] Azelaic Acid [Finacea] 1 appl TP BID 05/31/18 [History] Chlorhexidine Gluconate [Betasept] 1 appl TP DAILY PRN 05/31/18 [History] Ipratropium [place] 1 - 2 spr NS TID 05/31/18 [History] Selenium Sulfide [Tersi Foam] 1 appl TP BID 05/31/18 [History] Vitamin E 400 unit PO 1200 06/01/18 [History] Amiodarone [Cordarone] 200 mg PO DAILY 30 Days #30 tablet 06/07/18 [Rx] Patient Taking Own Medication 3 each OT TID PRN each 06/07/18 [Rx] Acetaminophen [Tylenol] 650 mg PO Q4HR PRN tablet 06/15/18 [Rx] Amiodarone [Cordarone] 200 mg PO DAILY #30 tablet 06/15/18 [Rx] Docusate [Colace] 100 mg PO BID capsule 06/15/18 [Rx] Lacri-Lube [Lacri-lube] 1 appl BOTH EYES TID PRN tube 06/15/18 [Rx] Lidocaine Patch [Lidoderm 5% patch] 1 each TP DAILY #7 adh..patch 06/15/18 [Rx] Mag Hydrox/Al Hydrox/Simeth [Maalox] 30 ml PO Q4H PRN udc 06/15/18 [Rx] Polyethylene Glycol 3350 [MiraLAX] 17 gm PO DAILY PRN powd.pack 06/15/18 [Rx] Allergies/Adverse Reactions: Allergy/AdvReac Type Severity Reaction Status Date / Time ciprofloxacin AdvReac Hives Verified 05/31/18 12:39 hydrocodone AdvReac Itching Verified 05/31/18 07:37 Date of admission: 06/07/18 15:48 Primary care physician: Adair Ahuja MD Consults: 06/07/18 16:51 Consult to Nurse Rn Bsn [CONS] Routine Reason for SW Consult: discharge planning 06/07/18 17:13 Consult to Occupational Therapy [CONS] Routine Comment: Evaluate, develop and implement POC Reason for Consult: cabq Does patient have active BEDREST order?: No Is patient medically & hemodynamically stable?: Yes Consult to Physical Therapy [CONS] Routine Comment: Evaluate, develop and implement POC Reason for Consult: cabg Does patient have active BEDREST order?: No Is patient medically & hemodynamically stable?: Yes Consult to Recreational Therapy [CONS] Routine Comment: Evaluate, develop and implement POC Discharging clinician: Yulisa Hernandez Anticipated date of discharge: 06/15/18 - Constitutional Vitals: Temp Pulse Resp BP Pulse Ox 98.2 F 70 16 103/65 93 06/15/18 07:06 06/15/18 07:06 06/15/18 07:06 06/15/18 07:06 06/15/18 07:06 General appearance: Present: cooperative, A&O X 3, pleasant, no acute distress, answers questions appropriately - Head Head exam: Present: atraumatic, normocephalic - Eye Eye exam: Present: PERRL, conjuntiva pink, sclera anicteric Pupils: Present: PERRL - Neck Neck exam general surgery: Present: supple, trachea midline. Absent: lymphadenopathy - Respiratory Respiratory exam: Present: CTAB. Absent: accessory muscle use, rales, rhonchi, wheezes - Cardiovascular Cardiovascular exam: Present: RRR, +S1, +S2. Absent: diastolic murmur, gallop, rubs, systolic murmur - GI/Abdominal GI/Abdominal exam: Present: normal bowel sounds, soft, no peritoneal signs. Absent: distended, tenderness - Extremities Exam Extremities exam: Present: warm, radial pulses palpable and symmetrical. Absent: calf tenderness, cyanotic, pedal edema - Incison Comments: sternal incision healing, no drainage. - Neurological Exam Neurological exam: Present: CN II-XII intact, oriented X3, no focal deficits. Absent: pronater drift, facial droop, speech deficit - Skin Skin exam: Present: dry, intact - Patient Status Disposition: Home, Self-Care Condition: Good Functional capacity at discharge: independent ambulation Overall status at discharge: patient is progressing back to baseline - Discharge Instructions Follow Up With: Adair Ahuja MD [Primary Care Provider] - 06/24/18 2:15 pm Armand Grant DO [Partnered Physician] - 06/21/18 2:30 pm Abbie Nunes MD [Partnered Physician] - (Web Request made. Office will call to make appointment.) Additional Instructions: Wash incisions with soap and water. Pat dry. Call physician if incisions have drainage, redness, swelling, odor or increased pain. Follow-up appointments: If there is not an appointment listed below, please call your physician and schedule a follow-up appointment. If you have congestive heart failure and your symptoms return, make an appointment with your physician. Medication List: Carry an up to date list of medications you are taking at all time. We have given you an updated medication list including any new medications that you have been prescribed. Please provide that list to your primary provider Symptoms: If your condition changes or you experience any of the following symptoms, notify your physician immediately: Unusual or worsening pain, fever, persistent nausea and vomiting, bleeding, increase in swelling (especially in your legs), sudden weight gain, extreme dizziness, chest pain, increased drainage or redness from a wound or incision. Go to the emergency department if you experience a problem with breathing. Weights: If you have a history of swelling or shortness of breath, weigh yourself daily and notify your physician if you have a weight gain of two or more pounds in one day or 5 or more pounds in a week. If you experience any of the warning signs for stroke: Sudden numbness or weakness of the face, arm or leg; especially on one side of the body, sudden confusion, trouble speaking or understanding, sudden trouble seeing in one or both eyes, sudden trouble walking, dizziness, loss of balance or coordination, sudden sever headache with no cause; Call 911 or go to the emergency room. Stroke is a medical emergency. Some risk factors for stroke: Age, cigarette smoking, diabetes, excessive alcohol consumption, family history, high blood pressure, overweight, physical inactivity, prior stroke, heart attack, diagnosis of carotid artery stenosis or other artery disease. If you smoke, STOP: Smoking or tobacco use significantly increases your risk of heart and lung disease. Your chance of disease greatly increases if you continue to smoke. For more information, call the [place] tobacco quit line for smoking cessation 3-941-FGRX-NOW ( ) - Diet and Activity Activity: as per physical therapy Diet: low fat, low cholesterol, low salt diet
== END 2018-06-15 15:13 | disposition home or self-care (01) | DRG 950 ==
LOC: INPGRE 15:48